=== PATIENT | male | born 1960 | race Caucasian/White ===

== ENCOUNTER 2023-05-11 05:59 | Emergency (ER) | payer BC, SELFPAY ==
[2023-05-11 06:08] VITALS: BP 144/76; PULSE 63; O2SAT 96
[2023-05-11 06:09] VITALS: BP 144/76; PULSE 58; RESP 16; TEMP 36.5; O2SAT 98; BMI 31.6
--- NOTE | 2023-05-11 06:23 | [facility].EDABDPAI ---
Discharge Plan Disposition Patient Disposition: Home, Self-Care Chief Complaint: Abdominal Pain Referrals Follow up/Referrals: Provider,Merline, [Primary Care Provider] - See instructions Activity Restrictions/Add. Instructions Additional Instructions/Restrictions: If you have any worsening of your condition or any other concerning signs or symptoms, return to the emergency department or your primary care doctor for further evaluation. This includes inability to tolerate food or drink by mouth, intractable vomiting, fevers, inability to urinate, among other symptoms. Take Tylenol 1000 mg every 6 hours (4 times daily) and ibuprofen 400 mg every 6 hours (4 times daily) as needed with food and water to prevent GI upset and kidney damage. Clinical Impressions Clinical Impression: Ureterolithiasis Instructions Patient Instructions: DI for Acute Abdominal Pain, DI for Kidney Stones Discharge ED Provider: Edward Lang Abdominal Pain HPI <Tray Chirinos MD - Last Filed: 05/11/23 07:20> General Chief Complaint: Abdominal Pain Stated Complaint: Possible kidney stone Time Seen by Provider: 05/11/23 06:10 Mode of Arrival: Family Vehicle Source of Information: Patient Limitations: No Limitations Description of Symptoms (Recalled from ER Triage Doc. by RN): 62 yo male presents with CC of left abd/flank pain since last night. hasn't voided since last night. afebrile. n/v. last bm last night. History of Present Illness HPI narrative: 62-year-old male reported history of kidney stones approximately 10 years ago presents with acute onset left lower abdominal pain starting tonight while sleeping. Reports it woke him from sleep. Reports associated nausea and dry heaves. Reports that he has not been able to urinate since the onset of pain. Reports this feels similar to prior symptoms. The last time he had kidney stones he required lithotripsy. Patient reports that he had a recent URI but otherwise has been well. Related Data Allergies Allergy/AdvReac Type Severity Reaction Status Date / Time No Known Allergies Allergy Verified 05/11/23 06:21 [facility] <Tray Chirinos MD - Last Filed: 05/11/23 07:20> [facility] Disclaimer: The information contained in this section may have been updated after the patient was seen, as this information can be updated by other users. Social History (Updated 05/11/23 @ 07:20 by Tray Chirinos MD) Smoking Status: Unknown if ever smoked alcohol intake: never current occupational status: retired Travel in the last 8 weeks: None <Tray Chirinos MD - Last Filed: 05/11/23 07:20> ROS Obtained: Yes All systems reviewed & no additional complaints except as documented Physical Exam <Tray Chirinos MD - Last Filed: 05/11/23 07:20> General General appearance: alert and in no apparent distress Head Head exam: atraumatic and normocephalic Eye Eye exam: Present normal appearance, PERRL and EOMI ENT ENT exam: Present normal oropharynx and normal external ear exam Neck Neck exam: Present normal inspection and full ROM Chest Chest inspection: Present normal inspection and symmetric chest wall rise; Absent tenderness Respiratory Respiratory exam: Present normal lung sounds bilaterally; Absent respiratory distress Cardiovascular Cardiovascular exam: Present regular rate and normal rhythm Abdominal Exam Abdominal exam: Present soft and tenderness (Mild left lower quadrant); Absent distention or guarding Extremities Exam Extremities exam: Present normal inspection; Absent edema or joint swelling Back Exam Back exam: Present normal inspection; Absent tenderness, CVA tenderness (R) or CVA tenderness (L) Neurological Exam Neurological exam: Present alert and oriented X3; Absent motor sensory deficit Psychiatric Psychiatric exam: Present normal affect and normal mood Skin Skin exam: Present warm, dry and normal color Lymphatic Lymphatic Findings: no adenopathy Medical Decision Making <Tray Chirinos MD -
[2023-05-11 06:36] LABS: Basophils # 0.1 K/mm3 (0-0.2); Basophils % 0.6 % (0.1-2.0); Eosinophils # 0.1 K/mm3 (0.0-0.4); Eosinophils % 1.4 % (0.1-12.0); Hematocrit 41.2 % (42.0-52.0); Hemoglobin 13.1 g/dL (14.1-18.0); Lymphocytes # 2.1 K/mm3 (0.7-4.5); Lymphocytes % 22.8 % (10-50); Mean Corpuscular HGB Conc 31.8 g/dL (31.8-35.4); Mean Corpuscular Hemoglobin 30.2 pg (27.0-31.2); Mean Corpuscular Volume 95.1 fl (80-94); Mean Platelet Volume 7.3 fl (7.4-10.4); Monocytes # 0.4 K/mm3 (0.1-1.0); Monocytes % 3.7 % (1.7-9.3); Neutrophils # 6.7 K/mm3 (1.8-7.8); Neutrophils % 71.5 % (37.0-80.0); Platelet Count 380 K/mm3 (142-424); Red Blood Count 4.33 M/mm3 (4.60-6.20); Red Cell Distribution Width 13.6 % (11.5-17.5); White Blood Count 9.4 K/mm3 (4.8-10.8)
[2023-05-11 06:41] LABS: Alanine Aminotransferase 49 U/L (12-78); Albumin Level 4.4 g/dl (3.5-5.0); Albumin/Globulin Ratio 1.4 (1.1-1.8); Alkaline Phosphatase 83 U/L (38-126); Anion Gap 11.5 mEq/L (5-15); Aspartate Amino Transferase 55 U/L (17-59); Bilirubin,Total 0.5 mg/dl (0.2-1.3); Blood Urea Nitrogen 22 mg/dl (9-20); Carbon Dioxide 24 mmol/L (22.0-30.0); Chloride 111 mmol/L (98-107); Creatinine Clearance Estimated 109 mL/min (50-200); Estimated Glomerular Filt Rate 68 ml/min (>60); GFR (African American) 82 ML/MIN (>60); Globulin 3.1 g/dL (1.3-3.2); Glucose 161 mg/dl (74-100); Potassium 4.5 mmoL/L (3.5-5.1); Sodium 142 mmol/L (136-145); Total Protein,Serum 7.5 g/dl (6.3-8.2)
[2023-05-11 06:55] LABS: Microscopic, Urine URINE MICROSCOPIC (MICROSCOPIC)
[2023-05-11 06:57] LABS: Appearance,Urine TURBID (Clear); Blood, Urine 3+ (Negative); Color,Urine DK YELLOW (Yellow); Glucose,Urine (UA) Negative (Negative); Ketones,Urine TRACE (Negative); Leukocyte Esterase,Urine Negative (Negative); Nitrate,Urine Negative (Negative); Protein,Urine 2+ (Negative); Specific Gravity, Urine >= 1.030 (1.005-1.030)
[2023-05-11 07:10] LABS: Bilirubin,Urine 1+ (Negative)
[2023-05-11 07:11] LABS: WBC,Urine Occasional #/hpf (0-3)
[2023-05-11 07:12] LABS: RBC,Urine 20-50 #/hpf (0-3); Squamous Epithelial Cell,Urine Occasional #/hpf (0-5)
[2023-05-11 08:42] VITALS: BP 119/73; PULSE 55; RESP 18; TEMP 36.7; O2SAT 98
== END 2023-05-11 08:44 | disposition home or self-care (01) ==
PROVIDERS: Emergency Medicine; Emergency Provider Emergency Medicine
DX: N20.1 Calculus of ureter (principal); R10.32 Left lower quadrant pain
CPT/HCPCS: 80053; 81001; 85025; 96361; 96374; 96375; 99284; J2405